=== PATIENT | male | born 1980 | race African-American/Black ===

== ENCOUNTER 2018-02-25 12:28 | Inpatient (IN) | payer SELFPAY ==
[~2018-02-25] VITALS: Ht 175.3 cm; Wt 66.7 kg
[~2018-02-25 12:28] MED LIST: NOCURR
[2018-02-25 14:18] LABS: AMPHET/METH SCREEN,URINE POSITIVE (NEGATIVE); BARBITURATE SCREEN, URINE NEGATIVE (NEGATIVE); BENZODIAZEPINES SCREEN,URINE NEGATIVE (NEGATIVE); CANNABINOID SCREEN,URINE NEGATIVE (NEGATIVE); COCAINE SCREEN,URINE NEGATIVE (NEGATIVE); METHADONE SCREEN, URINE NEGATIVE (NEGATIVE); OPIATE SCREEN,URINE NEGATIVE (NEGATIVE)
[2018-02-25 14:21] LABS: PHENCYCLIDINE SCREEN,URINE NEGATIVE (NEGATIVE)
[2018-02-25 14:44] LABS: BASOPHILS % (AUTO) 0.7 % (0.0-2.0); EOSINOPHILS % (AUTO) 0.9 % (1.0-6.0); HEMATOCRIT 35.9 % (41-53); HEMOGLOBIN 12.1 g/dL (13.5-17.5); LYMPHOCYTES # (AUTO) 1.2 K/uL (1.0-4.8); LYMPHOCYTES % (AUTO) 22.5 % (22.0-44.0); MEAN CORPUSCULAR HGB CONC 33.8 G/dL (31.0-37.0); MEAN CORPUSCULAR VOLUME 89 fL (80-100); MONOCYTES # (AUTO) 0.4 K/uL (0.1-1.0); MONOCYTES % (AUTO) 7.9 % (2.0-9.0); NEUTROPHILS # (AUTO) 3.5 K/uL (1.8-7.7); PLATELET COUNT (AUTO) 466 K/uL (150-450); RED BLOOD CELL COUNT(AUTO) 4.03 MIL/uL (4.50-5.90); RED CELL DISTRIBUTION WIDTH 15.2 % (11.5-14.5)
[2018-02-25 14:56] LABS: ANION GAP 9 mmol/L (8-16); CALCIUM, TOTAL 9.2 mg/dL (8.8-10.5); CARBON DIOXIDE 28 mmol/L (22-29); CHLORIDE 103 mmol/L (98-107); CREATININE 0.85 mg/dL (0.60-1.30); GLOMERULAR FILTR. RATE CALC > 60 mL/min (>60); GLUCOSE,RANDOM 100 mg/dL (70-110); POTASSIUM 3.3 mmol/L (3.5-5.1); SODIUM SERUM 140 mmol/L (136-145); UREA NITROGEN, BLOOD 12 mg/dL (7-18)
[2018-02-25 15:01] LABS: ALANINE AMINOTRANSFERASE 43 U/L (12-78); ALBUMIN 3.4 g/dL (3.4-5.0); ALKALINE PHOSPHATASE 66 U/L (46-116); ASPARTATE AMINOTRANSFERASE 47 U/L (15-37); BILIRUBIN,TOTAL 0.4 mg/dL (0.1-1.0); TOTAL PROTEIN, SERUM 7.4 g/dL (6.4-8.2)
[2018-02-25] MEDS ORDERED: LORazepam 2 MG TABLET PO PRN (15:45)
[2018-02-25] MEDS ORDERED: HALOPERIDOL 5 MG TABLET PO PRN (15:45)
[2018-02-25] MEDS ORDERED: ZOLPIDEM TARTRATE 10 MG TABLET PO PRN (15:45)
[2018-02-25 16:55] LABS: CHOL/HDL RATIO 1.7 (4.2-7.3); CHOLESTEROL 115 mg/dL (131-200); HDL CHOLESTEROL 66 mg/dL (40-60); LDL CHOL (CALC.) 43 mg/dL (0-130); TRIGLYCERIDES 32 mg/dL (15-150)
[2018-02-25 17:30] VITALS: BP 140/100
[2018-02-25] MEDS ORDERED: ACETAMINOPHEN 325 MG TABLET PO PRN (18:00)
[2018-02-25] MEDS ORDERED: DOCUSATE SODIUM 100 MG CAPSULE PO PRN (18:00)
[2018-02-25] MEDS ORDERED: CloNIDine HCL 0.1 MG TABLET PO PRN (18:00)
[2018-02-25] MEDS ORDERED: IBUPROFEN 400 MG TABLET PO PRN (18:00)
[2018-02-25] MEDS ORDERED: GuaiFENesin/D-METHORPHAN [SUGAR-FREE] 200-20MG/10 ML SYRUP UDCUP PO PRN (18:00)
[2018-02-25] MEDS ORDERED: ONDANSETRON HCL 4 MG TABLET PO PRN (18:00)
[2018-02-25] MEDS: BACITRACIN 28.4 GM OINTMENT TP SCH (18:00)
[2018-02-25] MEDS ORDERED: PETROLATUM,WHITE 71 GM JELLY TP PRN (18:00)
[2018-02-25] MEDS ORDERED: NICOTINE 14 MG/24 HOUR PATCH TD PRN (18:00)
[2018-02-25] MEDS ORDERED: MAGNESIUM HYDROXIDE SUSPENSION 30 ML UDCUP PO PRN (18:00)
[2018-02-25] MEDS ORDERED: LOPERAMIDE HCL 2 MG CAPSULE PO PRN (18:00)
[2018-02-25] MEDS ORDERED: ALBUTEROL SULFATE HFA 90 MCG/PUFF 8 GM INHALER IH PRN (18:00)
[2018-02-25] MEDS ORDERED: MAG HYDROX/AL HYDROX/SIMETH ES 30 ML SUSPENSION UDCUP PO PRN (18:00)
[2018-02-26] MEDS: BACITRACIN 28.4 GM OINTMENT TP SCH ×2 (08:47→16:17)
[2018-02-26 08:57] VITALS: BP 125/74
[2018-02-26 17:22] VITALS: BP 132/87
[2018-02-27 08:59] VITALS: BP 124/69
[2018-02-27] MEDS: DIVALPROEX SODIUM 500 MG DR TABLET PO SCH ×2 (09:00→16:49)
[2018-02-27] MEDS: RisperiDONE 2 MG TABLET PO SCH ×2 (09:00→16:49)
[2018-02-27] MEDS: MULTIVITAMINS WITH MINERALS, THERAPEUTIC TABLET PO SCH (09:00)
[2018-02-27] MEDS: BACITRACIN 28.4 GM OINTMENT TP SCH ×2 (09:00→16:50)
[2018-02-27 17:00] VITALS: BP 128/77
[2018-02-28 08:29] VITALS: BP 148/83
[2018-02-28] MEDS: BACITRACIN 28.4 GM OINTMENT TP SCH ×2 (09:00→17:00)
[2018-02-28] MEDS: RisperiDONE 2 MG TABLET PO SCH ×2 (09:00→17:00)
[2018-02-28] MEDS: DIVALPROEX SODIUM 500 MG DR TABLET PO SCH ×2 (09:00→17:00)
[2018-02-28] MEDS: MULTIVITAMINS WITH MINERALS, THERAPEUTIC TABLET PO SCH (09:00)
[2018-02-28 16:47] VITALS: BP 123/83
[2018-03-01] MEDS: BACITRACIN 28.4 GM OINTMENT TP SCH ×2 (09:00→16:30)
[2018-03-01] MEDS: MULTIVITAMINS WITH MINERALS, THERAPEUTIC TABLET PO SCH (09:00)
[2018-03-01] MEDS: DIVALPROEX SODIUM 500 MG DR TABLET PO SCH ×2 (09:00→16:30)
[2018-03-01] MEDS: RisperiDONE 2 MG TABLET PO SCH ×2 (09:00→16:30)
== END 2018-03-01 18:00 | disposition left against medical advice (07) | DRG 885 ==
LOC: EMS 12:30 → 3EC 16:34
PROVIDERS: ADMIT Psychiatry & Neurology Child & Adolescent Psychiatry; ATTEND Psychiatry & Neurology Psychiatry
DX: F25.9 Schizoaffective disorder, unspecified (principal); D64.9 Anemia, unspecified; E87.6 Hypokalemia; F17.200 Nicotine dependence, unspecified, uncomplicated; F41.9 Anxiety disorder, unspecified; Z91.19 Patient's noncompliance with other medical treatment and regimen; Z53.21 Procedure and treatment not carried out due to patient leaving prior to being seen by health care provider
CPT/HCPCS: G0480